=== PATIENT | male | born 1970 | race Caucasian/White ===

== ENCOUNTER 2018-07-11 10:40 | Emergency (ER) | payer MEDICAID ==
[~2018-07-11] VITALS: Ht 157.5 cm; Wt 57.3 kg
[2018-07-11 10:43] VITALS: BP 135/71; PULSE 60; RESP 16; Ht 157.5 cm; Wt 57.3 kg
[2018-07-11] MEDS ORDERED: IBUPROFEN 600 MG TAB PO ONE (11:00)
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
[2018-07-11] MEDS ORDERED: IBUP-1542 PO (12:27)
== END 2018-07-11 12:46 | disposition home or self-care (01) ==
LOC: FTE 10:40
DX: S89.92XA Unspecified injury of left lower leg, initial encounter (principal); R40.2412 Glasgow coma scale score 13-15, at arrival to emergency department; F17.210 Nicotine dependence, cigarettes, uncomplicated; V18.1XXA Pedal cycle passenger injured in noncollision transport accident in nontraffic accident, initial encounter
CPT/HCPCS: 29505; 73562; Z7610